=== PATIENT | male | born 1970 | race Caucasian/White ===

== ENCOUNTER → 2017-03-06 | Outpatient (CLI) | payer OTHER ==
--- NOTE | 2017-03-06 15:25 | RADRPT ---
PROCEDURE: XR Right hip and pelvis. CLINICAL INDICATION: Right hip pain and pelvic pain. TECHNIQUE: 3 views. Frontal pelvis. Frontal and lateral right hip. COMPARISON: None. FINDINGS: There is no fracture or dislocation. The soft tissues are normal. There are degenerative changes of the right hip with joint space narrowing, osteophytes, subarticula r sclerosis, subarticular cysts, and deformity. The left hip is normal. There is no lytic or blastic lesion. There is no radiopaque foreign body. IMPRESSION: 1. Severe degenerative changes of the right hip. 2. Otherwise unremarkable frontal view of the pelvis. RPTAT: QQ .Levi Gómez MD, MD Date Time Electronically viewed and signed by .Levi Gómez MD, on 03/06/2017 15:25 .R/
--- NOTE | 2017-03-06 19:09 | HKNOTE ---
DATE OF SERVICE: CHIEF COMPLAINT: Right hip pain. HISTORY OF PRESENT ILLNESS: This is a 46-year-old male with history of right groin pain radiating to the right knee. He had difficulty ambulating. He was using a cane. He was previously evaluated at [facility] by Dr. Walter. He was told that he needs a right hip replacement. Dr. Walter does not take his insurance any longer. He states that the pain is constant. He is unable perform his activities of daily living. He is taking Tippecanoe with minimal pain relief. He has had previous physical therapy w ith no pain relief. He denies any back pain, he has no other complaints. GAIT: Antalgic gait. RIGHT HIP: 0-80 degrees of flexion, 20 degrees of external rotation, -15 degrees of internal rotatio n, 30 degrees of abduction, 10 degrees of adduction, positive obligate external rotation, negative s traight leg raise, positive FABERs. Right leg is slightly shorter than left. X-RAYS RIGHT HIP: Advanced degenerative disease of the right hip with loss of all joint space. AP PELVIS: Advanced osteoarthritis of the right hip. Right hip shorter by 4 mm. IMPRESSION: A 46-year-old male with advanced osteoarthritis of the right hip who has failed nonopera tive management. I discussed treatment options with Mr. Hubbard. He would like to proceed with a right total hip arthroplasty. We will request authorization for right total hip arthroplasty. He will ret urn in 6 weeks. Dictated By: MERLINE JOAQUIN/MARTHA Conf#: [id number] DID#: [id number]
== END | disposition home or self-care (01) ==
LOC: HKI 14:52
PROVIDERS: ATTEND Orthopaedic Surgery Adult Reconstructive Orthopaedic Surgery
DX: M16.11 Unilateral primary osteoarthritis, right hip (principal)
CPT/HCPCS: 73502; Z7500; G0463

== ENCOUNTER → 2017-04-06 | Outpatient (CLI) | payer OTHER ==
--- NOTE | 2017-04-06 19:51 | HKNOTE ---
DATE OF SERVICE: 04/06/2017 CHIEF COMPLAINT: Right hip pain. HISTORY OF PRESENT ILLNESS: This is a 46-year-old male with history of right hip osteoarthritis. He is here today for evaluation of his right total hip arthroplasty. He had [place]. [place] [facility] [place] He is unable to perform his activities of daily living. Gait: Antalgic gait, use of a cane. Right hip exam: 0 to 80 degrees of flexion, 20 degrees external rotation, -15 degrees internal rotation. Positive obligate external rotation, pain with passive range of motion. Positive Savage's. IMPRESSION: A 46-year-old male with right hip osteoarthritis. PLAN: The patient will be scheduled for right total hip arthroplasty. I explained to the patient that currently my schedule is booked up 6 to 8 weeks. We will call him for a date for surgery. Dictated By: MERLINE JOAQUIN/MARTHA Conf#: [id number] DID#: [id number] HENRY
--- NOTE | 2017-04-06 19:51 | HKNOTE ---
DATE OF SERVICE: 04/06/2017 CHIEF COMPLAINT: Right hip pain. HISTORY OF PRESENT ILLNESS: This is a 46-year-old male with history of right hip osteoarthritis. He is here today for evaluation of his right total hip arthroplasty. He had previously seen Dr. Walter at [facility]. He is unable to perform his activities of daily living. Gait: Antalgic gait, use of a cane. Right hip exam: 0 to 80 degrees of flexion, 20 degrees external rotation, -15 degrees internal rotation. Positive obligate external rotation, pain with passive range of motion. Positive Savage's. IMPRESSION: A 46-year-old male with right hip osteoarthritis. PLAN: The patient will be scheduled for right total hip arthroplasty. I explained to the patient that currently my schedule is booked up 6 to 8 weeks. We will call him for a date for surgery. Dictated By: MERLINE JOAQUIN/MARTHA Conf#: [id number] DID#: [id number] HENRY
--- NOTE | 2017-04-06 19:51 | HKNOTE ---
DATE OF SERVICE: 04/06/2017 CHIEF COMPLAINT: Right hip pain. HISTORY OF PRESENT ILLNESS: This is a 46-year-old male with history of right hip osteoarthritis. He is here today for evaluation of his right total hip arthroplasty. He had [place]. [place] [facility] [place] is unable to perform his activities of daily living. Gait: Antalgic gait, use of a cane. Right hip exam: 0 to 80 degrees of flexion, 20 degrees external rotation, -15 degrees internal rotation. Positive obligate external rotation, pain with passive range of motion. Positive Savage's. IMPRESSION: A 46-year-old male with right hip osteoarthritis. PLAN: The patient will be scheduled for right total hip arthroplasty. I explained to the patient that currently my schedule is booked up 6 to 8 weeks. We will call him for a date for surgery. Dictated By: MERLINE JOAQUIN/MARTHA Conf#: [id number] DID#: [id number] HENRY
== END | disposition home or self-care (01) ==
LOC: HKI 14:49
PROVIDERS: ATTEND Orthopaedic Surgery Adult Reconstructive Orthopaedic Surgery
DX: M16.11 Unilateral primary osteoarthritis, right hip (principal)
CPT/HCPCS: G0463

== ENCOUNTER → 2017-06-06 | Outpatient (CLI) | END | disposition home or self-care (01) ==

== ENCOUNTER 2017-06-07 05:28 | Inpatient (IN) | END 2017-06-10 14:52 | disposition home health service (06) | DRG 470 ==

== ENCOUNTER → 2017-06-26 | Outpatient (CLI) | END | disposition home or self-care (01) ==

== ENCOUNTER → 2017-07-11 | Outpatient (CLI) | END | disposition home or self-care (01) ==

== ENCOUNTER → 2018-01-02 | Outpatient (CLI) | END | disposition home or self-care (01) ==